=== PATIENT | female | born 1965 | race Caucasian/White ===

== ENCOUNTER → 2017-03-12 | Outpatient (CLI) | payer BC, OTHER ==
[2017-03-12 09:34] LABS: ANION GAP 8 MEQ/L (8-16); BLOOD UREA NITROGEN 13 MG/DL (7-18); CALCIUM LEVEL 8.7 MG/DL (8.5-10.1); CARBON DIOXIDE LEVEL 27 MEQ/L (21-32); CHLORIDE LEVEL 107 MEQ/L (98-107); CHOLESTEROL LEVEL 205 MG/DL (<200); CREATININE FOR GFR 0.61 MG/DL (0.55-1.02); GLOMERULAR FILTRATION RATE > 60.0 (>51); GLUCOSE, FASTING 98 MG/DL (70-105); POTASSIUM SERUM 4.6 MEQ/L (3.5-5.1); SODIUM LEVEL 142 MEQ/L (136-145); TRIGLYCERIDES LEVEL 112 MG/DL (<150)
== END ==
LOC: M WUC 08:23
PROVIDERS: ATTEND Physician Assistant Medical
DX: R73.03 Prediabetes (principal); E55.9 Vitamin D deficiency, unspecified

== ENCOUNTER → 2018-06-14 | Outpatient (CLI) | payer OTHER, BC ==
[2018-06-14 13:39] LABS: ANION GAP 10 MEQ/L (8-16); BLOOD UREA NITROGEN 11 MG/DL (7-18); CALCIUM LEVEL 8.8 MG/DL (8.5-10.1); CARBON DIOXIDE LEVEL 24 MEQ/L (21-32); CHLORIDE LEVEL 107 MEQ/L (98-107); CHOLESTEROL LEVEL 180 MG/DL (<200); CHOLESTEROL RISK RATIO 3.461 (<5); CREATININE FOR GFR 0.61 MG/DL (0.55-1.30); GLOMERULAR FILTRATION RATE > 60.0 (>51); GLUCOSE, FASTING 109 MG/DL (70-100); HDL CHOLESTEROL 52 MG/DL (>40); LDL CHOLESTEROL 99 MG/DL (<100); NON-HDL-C 128 MG/DL; POTASSIUM SERUM 4.4 MEQ/L (3.5-5.1); SODIUM LEVEL 141 MEQ/L (136-145); TOTAL 25(OH) VITAMIN D 20.8 NG/ML (30.0-100.0); TRIGLYCERIDES LEVEL 145 MG/DL (<150)
[2018-06-14 14:13] LABS: ESTIMATED AVERAGE GLUCOSE 126 MG/DL (60-110)
== END ==
LOC: M WUC 08:42
DX: R73.03 Prediabetes (principal); E66.9 Obesity, unspecified; E55.9 Vitamin D deficiency, unspecified
CPT/HCPCS: 83036

== ENCOUNTER → 2019-07-04 | Outpatient (REF) | payer OTHER ==
[2019-07-06 08:06] LABS: BORDETELLA PARAPERTUSSIS PCR Negative (Negative); BORDETELLA PERTUSSIS BY PCR Negative (Negative)
== END ==
LOC: M LAB REF 09:50
PROVIDERS: ATTEND Nurse Practitioner Family
DX: J01.90 Acute sinusitis, unspecified (principal)

== ENCOUNTER → 2019-10-25 | Outpatient (CLI) | payer OTHER ==
[2019-10-25 09:59] LABS: ALBUMIN 3.7 GM/DL (3.2-5.2); ALT/SGPT 29 U/L (12-78); BILIRUBIN,TOTAL 0.6 MG/DL (0.2-1.0); BLOOD UREA NITROGEN 13 MG/DL (7-18); CALCIUM LEVEL 8.7 MG/DL (8.5-10.1); CARBON DIOXIDE LEVEL 27 MEQ/L (21-32); CHLORIDE LEVEL 107 MEQ/L (98-107); CHOLESTEROL LEVEL 207 MG/DL (<200); CHOLESTEROL RISK RATIO 3.631 (<5); CREATININE FOR GFR 0.67 MG/DL (0.55-1.30); GLOMERULAR FILTRATION RATE > 60.0 (>51); GLUCOSE, FASTING 113 MG/DL (70-100); HDL CHOLESTEROL 57 MG/DL (>40); LDL CHOLESTEROL 126 MG/DL (<100); NON-HDL-C 150 MG/DL; POTASSIUM SERUM 4.6 MEQ/L (3.5-5.1); SODIUM LEVEL 139 MEQ/L (136-145); TOTAL PROTEIN 7.8 GM/DL (6.4-8.2); TRIGLYCERIDES LEVEL 121 MG/DL (<150)
[2019-10-25 10:37] LABS: HEMOGLOBIN A1c 6.2 %
== END ==
LOC: M WUC 08:25
DX: R19.7 Diarrhea, unspecified (principal); Z13.220 Encounter for screening for lipoid disorders; Z13.1 Encounter for screening for diabetes mellitus

== ENCOUNTER → 2020-02-09 | Outpatient (REF) | payer OTHER | LOC: M LAB REF 12:10 | PROVIDERS: ATTEND Physician Assistant | DX: R30.0 Dysuria (principal) ==

== ENCOUNTER → 2020-02-23 | Outpatient (CLI) | payer OTHER ==
[2020-02-23 12:40] LABS: HEMOGLOBIN A1c 5.9 %
== END ==
LOC: M WUC 10:14
PROVIDERS: ATTEND Nurse Practitioner Family
DX: R73.03 Prediabetes (principal)

== ENCOUNTER 2021-07-13 10:52 | Emergency (ER) | payer BC, OTHER ==
[~2021-07-13] VITALS: Ht 182.9 cm; Wt 121.8 kg
--- OUTSIDE RECORDS SUMMARY | 2021-07-13 10:57 | CCD | Continuity of Care Document ---
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 [employer] [phone] No PCP AUTM Unavailable Problems Description No Information Available Social History Type Date Description Comments Sex Unknown ETOH Use 10/13/2019 Denies alcohol use Tobacco Use Start: Unknown End: Unknown Patient is a former smoker smoked when she was 16-18 years of age 2 years only Recreational Drug Use Formerly used Marijuana re gularly Smoking Status Reviewed: 05/26/21 Patient is a former smoker sm oked when she was 16-18 years of age 2 years only Exercise Type/Frequency Exercises regularly Allergies and adverse reactions Description No Known Drug Allergies Medications Description No Active Medications Immunizations Description No Information Available Vital Signs Date Vital Result Comment 05/26/2021 1:16pm Height 66 inches 5'6" Weight 270.00 lb BMI (Body Mass Index) 43.6 kg/m2 BP Systolic 110 mmHg BP Diastolic 68 mmHg Heart Rate 86 /min Body Temperature 97.4 F Body Temperature 36.3 C O2 % BldC Oximetry 95 % 10/13/2019 1:47pm Height 66 inches 5'6" Weight 256.25 lb BMI (Body Mass Index) 41.4 kg/m2 BP Systolic 110 mmHg BP Diastolic 90 mmHg Heart Rate 79 /min Body Temperature 98.6 F Body Temperature 37.0 C O2 % BldC Oximetry 95 % Results Test Acquired Date Facility Test Result H/L Range Note CMP-Female 05/26/2021 [facility] [address] [place] [address] [phone] Glucose 137 mg/dL High 74-106 1 BUN 15 mg/dL 6-20 Creatinine 0.7 mg/dL 0.5-1.3 Sodium 141 mmol/L 136-145 Potassium 4.3 mmol/L 3.5-5.3 Chloride 106 mmol/L 98-107 Co2 30 mEq/L 20-31 Anion Gap 5 mmol/L Low 7-16 eGFR-female 87 mL/m/1.73m - eGFR-Aa female 105 mL/m/1.73m - 2 Alk. Phos. 112 U/L 46-116 Alt 24 U/L 4-36 3 Ast 19 U/L 8-33 Total Bilirubin 0.4 mg/dL 0.3-1.2 Total Protein 7.4 g/dL 6.4-8.3 4 Albumin 4.4 g/dL 3.6-5.1 A/G Ratio 1.5 Ratio 1.0-2.0 Globulin 3 g/dL 1.9-3.7 Calcium 9.1 mg/dL 8.9-10.5 LPPM 05/26/2021 [facility] [address] [place] [address] [phone] Cholesterol 193 mg/dL 0-200 Triglycerides 202 mg/dL 0-249 5 HDL 55 mg/dL 40-60 LDL-Calculated 98 mg/dL 0-130 VLDL 40 mg/dL High 0-28 Cardiac Risk 3.51 Ratio Low 3.7-5.3 Laboratory test finding 05/26/2021 [facility] [address] [place] [address] [phone] Hgb A1c 6.5 % 3.6-6.9 6 Est. Average Glucose 140 mg/dL - 7 Venipuncture DONE - 1 [place] Diabetes Associatio n (ADA) Recommended Range is 65-99 mg/dL 2 Normal Kidney Function or Mi ld Disease GFR >59 mL/min/1.73m2 Chronic Kidney Disease GFR 15-59 mL/min/1.73m2 Renal Failure GFR <15 mL/min/1.73m2 3 Effective 02/06/2017: [email or web address] has indicated interference with the drugs sulfasalazine and sulfapyridine. They suggest collection should occur prior to drug administration due to falsely depressed results. 4 Results may reflect a potent ial interference in Total Protein results in patients receiving dextran as blood volume expanders. 5 National Cholesterol Educati on Program (NCEP) Guidelines: Recommended Range <150 mg/dL 6 Hgb A1c Interpretation: <5.8% - Non-diabetic >6.5% - Diabetic <7.0% - ADA diabetic treatment goal 7 The Estimated Average Glucos e is a calculation of the average glucose over the last 120 days including non-fasting as well as fasting levels. Procedures Date Code Description Status 05/26/2021 31740 Preventive Visit Est 40-64 Yrs C ompleted Medical Devices Description No Information Available Encounters Type Date Location Provider Dx Diagnosis Office Visit 05/26/2021 1:20p [facility] [place] Ashley Hawthorne NP R73.03 Prediabetes E78.5 Hyperlipidemia, unspecified Z00.00 Encntr for general adult med ical exam w/o abnormal findings Z12.31 Encntr screen mammogram for malignant neoplasm of breast Z71.3 Dietary counseling and surve illance Assessments Date Code Description Provider 05/26/2021 R73.03 Prediabetes Iacny Clinical L abs 05/26/2021 E78.5 Hyperlipidemia, unspecified Iacn y Clinical Labs 05/26/2021 R73.03 Prediabetes Ashley Hawthorne NP 05/26/2021 E78.5 Hyperlipidemia, unspecified Beve iker Hawthorne NP 05/26/2021 Z00.00 Encounter for genera l adult medical examination without abnormal findings Ashley Hawthorne NP 05/26/2021 Z12.31 Encounter for screen ing mammogram for malignant neoplasm of breast Ashley Hawthorne NP 05/26/2021 Z71.3 Dietary counseling and surveilla nce Ashley Hawthorne NP Plan of Treatment Future Appointment(s):* 11/24/2021 10:40 am - Ashley Hawthorne NP at [facility] [place] 05/26/2021 - Ashley Hawthorne NP* R73.03 Prediabetes* Comments:* Stable without medication.Did not take metformin.Work on diet and weight loss.Check HgA1c. * E78.5 Hyperlipidemia, unspecified* Comments:* Continue monitoring. * Follow up:* 6 months * Z00.00 Encounter for general adult medical examination without abnormal findings* Comments:* She is a pleasant and healthy woman.Normal exam.Patient was counseled on the importance of a well-balanced diet and exercise. Patient was encouraged to follow-up regularly with dentist and attend routine eye exams with creel cleaner.Ordered blood work in the clinic today. * Follow up:* In 1 year or sooner as needed. * Z12.31 Encounter for screening mammogram for malignant neoplasm of breast* Comments:* done through [employer] [facility] * Z71.3 Dietary counseling and surveillance Functional Status Functional Condition Comment Date Status Glasses Active Mental Status Description No Information Available Referrals Description No Information Available
--- OUTSIDE RECORDS SUMMARY | 2021-07-13 10:57 | CCD | Continuity of Care Document ---
Author Author Alice HAWTHORNE COSTUME DESIGNER Organization Unknown Address [address] [place] [address] Phone [phone] Care Team Providers Care Supervisor Special Services Name Role Phone Ashley Hawthorne [employer]NER AUTM [phone] Problems Description No Information Available Social History [...] Test Result H/L Range Note CMP-Female 05/26/2021 [facility] [address] [place], [place] [id number] [phone] Glucose 137 mg/dL High 74-106 1 BUN [...] 1.9-3.7 Calcium 9.1 mg/dL 8.9-10.5 LPPM 05/26/2021 [facility] [address] [place] [address] [phone] Cholesterol 193 mg/dL 0-200 Triglycerides 202 mg/dL 0-249 5 HDL 55 mg/dL 40-60 LDL-Calculated 98 mg/dL 0-130 VLDL 40 mg/dL High 0-28 Cardiac Risk 3.51 Ratio Low 3.7-5.3 Laboratory test finding 05/26/2021 [facility] [address] [place] [address] [phone] Hgb A1c 6.5 % 3.6-6.9 6 Est. Average Glucose 140 mg/dL - 7 Venipuncture DONE - 1 [place] Diabetes Associatio n (ADA) Recommended Range is 65-99 mg/dL 2 Normal Kidney Function or Mi ld Disease GFR >59 mL/min/1.73m2 Chronic Kidney Disease GFR 15-59 mL/min/1.73m2 Renal Failure GFR <15 mL/min/1.73m2 3 Effective 02/06/2017: [employer] has indicated interference with the drugs sulfasalazine [...] levels. Procedures Date Code Description Status 05/26/2021 35499 Preventive Visit Est 40-64 Yrs C ompleted Medical Devices Description No Information Available Encounters Description No Information Available Assessments Date Code Description Provider 05/26/2021 R73.03 Prediabetes Ashley Hawthorne NP 05/26/2021 E78.5 Hyperlipidemia, unspecified Beve iker Hawthorne NP 05/26/2021 Z00.00 Encounter for genera l adult medical examination without abnormal findings Ashley Hawthorne NP 05/26/2021 Z12.31 Encounter for screen ing mammogram for malignant neoplasm of breast Ashley Hawthorne NP Plan of Treatment Future Appointment(s):* 11/24/2021 10:40 am - Ashley Hawthorne NP at [facility] Primary Care AT [place] 05/26/2021 - Ashley Hawthorne NP* R73.03 Prediabetes* [...] dentist and attend routine eye exams with hr associate.Ordered blood work in the clinic today. * Follow up:* In 1 year or sooner as needed. * Z12.31 Encounter for screening mammogram for malignant neoplasm of breast* Comments:* done through [employer] Functional Status Functional Condition Comment Date Status Glasses Active Mental Status Description No Information Available Referrals Description No Information Available
--- OUTSIDE RECORDS SUMMARY | 2021-07-13 10:57 | CCD ---
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 Name Role Phone Maring, Zach PA Unavailable Unavailable Maring, Zach PA Unavailable Unavailable Maring, Zach PA Unavailable Unavailable Maring, Zach PA Unavailable Unavailable Maring, Zach PA Unavailable Unavailable Maring, Zach PA Unavailable Unavailable Maring, Zach PA Unavailable Unavailable Maring, Zach PA Unavailable Unavailable Maring, Zach PA Unavailable Unavailable Maring, Zach PA Unavailable Unavailable Maring, Zach PA Unavailable Unavailable Maring, Zach PA Unavailable Unavailable Maring, Zach PA Unavailable Unavailable Maring, Zach PA Unavailable Unavailable Maring, Zach PA Unavailable Unavailable Maring, Zach PA Unavailable Unavailable White, Verónica WAREHOUSE PRODUCTION WORKER Unavailable Unavailable White, Verónica WAREHOUSE PRODUCTION WORKER Unavailable Unavailable White, Verónica WAREHOUSE PRODUCTION WORKER Unavailable Unavailable White, Verónica WAREHOUSE PRODUCTION WORKER Unavailable Unavailable White, Veróinca WAREHOUSE PRODUCTION WORKER Unavailable Unavailable White, Verónica WAREHOUSE PRODUCTION WORKER Unavailable Unavailable White, Verónica WAREHOUSE PRODUCTION WORKER Unavailable Unavailable White, Verónica WAREHOUSE PRODUCTION WORKER Unavailable Unavailable White, Verónica WAREHOUSE PRODUCTION WORKER Unavailable Unavailable White, Verónica WAREHOUSE PRODUCTION WORKER Unavailable Unavailable White, Verónica WAREHOUSE PRODUCTION WORKER Unavailable Unavailable White, Verónica WAREHOUSE PRODUCTION WORKER Unavailable Unavailable White, Verónica WAREHOUSE PRODUCTION WORKER Unavailable Unavailable Chico Hawthorne WAREHOUSE PRODUCTION WORKER Unavailable Unavailable Chico Hawthorne WAREHOUSE PRODUCTION WORKER Unavailable Unavailable Christoph, A Ashley WAREHOUSE PRODUCTION WORKER Unavailable Unavailable Christoph, A Ashley WAREHOUSE PRODUCTION WORKER Unavailable Unavailable Christoph, A Ashley WAREHOUSE PRODUCTION WORKER Unavailable Unavailable Christoph, A Ashley WAREHOUSE PRODUCTION WORKER Unavailable Unavailable Christoph, A Ashley WAREHOUSE PRODUCTION WORKER Unavailable Unavailable Christoph, A Ashley WAREHOUSE PRODUCTION WORKER Unavailable Unavailable Christoph, A Ashley WAREHOUSE PRODUCTION WORKER Unavailable Unavailable Christoph, A Ashley WAREHOUSE PRODUCTION WORKER Unavailable Unavailable Christoph, A Ashley WAREHOUSE PRODUCTION WORKER Unavailable Unavailable Christoph, A Ashley WAREHOUSE PRODUCTION WORKER Unavailable Unavailable Christoph, A Ashley WAREHOUSE PRODUCTION WORKER Unavailable Unavailable Christoph, A Ashley WAREHOUSE PRODUCTION WORKER Unavailable Unavailable Christoph, A Ashley WAREHOUSE PRODUCTION WORKER Unavailable Unavailable Christoph, A Ashley WAREHOUSE PRODUCTION WORKER Unavailable Unavailable Christoph, A Ashley WAREHOUSE PRODUCTION WORKER Unavailable Unavailable Christoph, A Ashley WAREHOUSE PRODUCTION WORKER Unavailable Unavailable Christoph, A Ashley WAREHOUSE PRODUCTION WORKER Unavailable Unavailable Christoph, A Ashley WAREHOUSE PRODUCTION WORKER Unavailable Unavailable Christoph, A Ashley WAREHOUSE PRODUCTION WORKER Unavailable Unavailable Christoph, A Ashley WAREHOUSE PRODUCTION WORKER Unavailable Unavailable Christoph, A Ashley WAREHOUSE PRODUCTION WORKER Unavailable Unavailable Christoph, A Ashely WAREHOUSE PRODUCTION WORKER Unavailable Unavailable Christoph, A Ashley WAREHOUSE PRODUCTION WORKER Unavailable Unavailable Christoph, A Ashley WAREHOUSE PRODUCTION WORKER Unavailable Unavailable Christoph, A Ashley WAREHOUSE PRODUCTION WORKER Unavailable Unavailable Christoph, A Ashley WAREHOUSE PRODUCTION WORKER Unavailable Unavailable Christoph, A Ashley WAREHOUSE PRODUCTION WORKER Unavailable Unavailable Christoph, A Ashley WAREHOUSE PRODUCTION WORKER Unavailable Unavailable Christoph, A Ashley WAREHOUSE PRODUCTION WORKER Unavailable Unavailable Christoph, A Ashley WAREHOUSE PRODUCTION WORKER Unavailable Unavailable Christoph, A Ashley WAREHOUSE PRODUCTION WORKER Unavailable Unavailable Christoph, A Ashley WAREHOUSE PRODUCTION WORKER Unavailable Unavailable Christoph, A Ashley WAREHOUSE PRODUCTION WORKER Unavailable Unavailable Christoph, A Ashley WAREHOUSE PRODUCTION WORKER Unavailable Unavailable Christoph, A Ashley WAREHOUSE PRODUCTION WORKER Unavailable Unavailable Christoph, A Ashley WAREHOUSE PRODUCTION WORKER Unavailable Unavailable Christoph, A Ashley WAREHOUSE PRODUCTION WORKER Unavailable Unavailable Christoph, A Ashley WAREHOUSE PRODUCTION WORKER Unavailable Unavailable Christoph, A Ashley WAREHOUSE PRODUCTION WORKER Unavailable Unavailable Christoph, A Ashley WAREHOUSE PRODUCTION WORKER Unavailable Unavailable Christoph, A Ashley WAREHOUSE PRODUCTION WORKER Unavailable Unavailable Christoph, A Ashley WAREHOUSE PRODUCTION WORKER Unavailable Unavailable Christoph, A Ashley WAREHOUSE PRODUCTION WORKER Unavailable Unavailable Christoph, A Ashley WAREHOUSE PRODUCTION WORKER Unavailable Unavailable Christoph, A Ashley WAREHOUSE PRODUCTION WORKER Unavailable Unavailable Christoph, A Ashley WAREHOUSE PRODUCTION WORKER Unavailable Unavailable Christoph, A Ashley WAREHOUSE PRODUCTION WORKER Unavailable Unavailable Christoph, A Ashley WAREHOUSE PRODUCTION WORKER Unavailable Unavailable Christoph, A Ashley WAREHOUSE PRODUCTION WORKER Unavailable Unavailable Christoph, A Ashley WAREHOUSE PRODUCTION WORKER Unavailable Unavailable Christoph, A Ashley WAREHOUSE PRODUCTION WORKER Unavailable Unavailable Christoph, A Ashley WAREHOUSE PRODUCTION WORKER Unavailable Unavailable Christoph, A Ashley WAREHOUSE PRODUCTION WORKER Unavailable Unavailable Christoph, A Ashley WAREHOUSE PRODUCTION WORKER Unavailable Unavailable Nilesh Dillard MD Unavailable Unavailable Nilesh Dillard MD Unavailable Unavailable Nilesh Dillard MD Unavailable Unavailable Nilesh Dillard MD Unavailable Unavailable Nilesh Dillard MD Unavailable Unavailable Nilesh Dillard MD Unavailable Unavailable Nilesh Dillard MD Unavailable Unavailable Nilesh Dillard MD Unavailable Unavailable Nilesh Dillard MD Unavailable Unavailable Nilesh Dillard MD Unavailable Unavailable Nilesh Dillard MD Unavailable Unavailable Nilesh Dillard MD Unavailable Unavailable Nilesh Dillard MD Unavailable Unavailable Nilesh Dillard MD Unavailable Unavailable Nilesh Dillard MD Unavailable Unavailable Nilesh Dillard MD Unavailable Unavailable Nilesh Dillard MD Unavailable Unavailable Nilesh Dilladr MD Unavailable Unavailable Nilesh Dillard MD Unavailable Unavailable Nilesh Dillard MD Unavailable Unavailable Nilesh Dillard MD Unavailable Unavailable Nilesh Dillard MD Unavailable Unavailable Nilesh Dillard MD Unavailable Unavailable Nilesh Dillard MD Unavailable Unavailable Nilesh Dillard MD Unavailable Unavailable Armendariz, M Christopher PA-C Unavailable Unavailable Armendariz, M Christopher PA-C Unavailable Unavailable Armendariz, M Christopher PA-C Unavailable Unavailable Armendariz, M Christopher PA-C Unavailable Unavailable Armendariz, M Christopher PA-C Unavailable Unavailable Armendariz, M Christopher PA-C Unavailable Unavailable Armendariz, M Christopher PA-C Unavailable Unavailable Armendariz, M Christopher PA-C Unavailable Unavailable Armendariz, M Christopher PA-C Unavailable Unavailable Armendariz, M Christopher PA-C Unavailable Unavailable Armendariz, M Christopher PA-C Unavailable Unavailable Armendariz, M Christopher PA-C Unavailable Unavailable Armendariz, M Christopher PA-C Unavailable Unavailable Armendariz, M Christopher PA-C Unavailable Unavailable Armendariz, M Christopher PA-C Unavailable Unavailable Armendariz, M Christopher PA-C Unavailable Unavailable Armendariz, M Christopher PA-C Unavailable Unavailable Armendariz, M Christopher PA-C Unavailable Unavailable Armendariz, M Christopher PA-C Unavailable Unavailable Armendariz, M Christopher PA-C Unavailable Unavailable Armendariz, M Christopher PA-C Unavailable Unavailable Armendariz, M Christopher PA-C Unavailable Unavailable Armendariz, M Christopher PA-C Unavailable Unavailable Armendariz, M Christopher PA-C Unavailable Unavailable Armendariz, M Christopher PA-C Unavailable Unavailable Armendariz, M Christopher PA-C Unavailable Unavailable Re-disclosure Warning The records that you are about to access may contain information from federally-assisted alcohol or drug abuse programs. If such information is present, then the following federally mandated warning applies: This information has been disclosed to you from records protected by federal confidentiality rules (42 CFR part 2). The federal rules prohibit you from making any further disclosure of this information unless further disclosure is expressly permitted by the written consent of the person to whom it pertains or as otherwise permitted by 42 CFR part 2. A general authorization for the release of medical or other information is NOT sufficient for this purpose. The Federal rules restrict any use of the information to criminally investigate or prosecute any alcohol or drug abuse patient.The records that you are about to access may contain highly sensitive health information, the redisclosure of which is protected by Article 27-F of the [place] Public [employer] law. If you continue you may have access to information: Regarding HIV / AIDS; Provided by facilities licensed or operated by the [place] Office of Mental Health; or Provided by the [place] Office for People With Developmental Disabilities. If such information is present, then the following [place] mandated warning applies: This information has been disclosed to you from confidential records which are protected by state law. State law prohibits you from making any further disclosure of this information without the specific written consent of the person to whom it pertains, or as otherwise permitted by law. Any unauthorized further disclosure in violation of state law may result in a fine or fpc sentence or both. A general authorization for the release of medical or other information is NOT sufficient authorization for further disc losure. Family History Family Member Name Family Member Gender Family Member Status Date o f Status Description Data Source(s) Unknown Unknown Problem [facility] ([facility] Unknown Female Problem [facility] ([facility] Unknown Unknown Problem [facility] Unknown Unknown Problem [facility] ([facility] Encounters Encounter Providers Location Date Indications Data Source(s ) Outpatient Attender: Jorge Armendariz PA-C 07/06/2021 07:23:49 AM EST - 07/06/2021 01:44:27 PM EST [facility] ([facility]) Outpatient Attender: Ashley Hawthorne NP [facility] [place] 05/26/2021 01:20:00 PM EDT [facility] ([facility]) Outpatient Attender: Padmaja Dillard MD 0 04/09/2021 08:07:21 PM EDT - 04/09/2021 09:13:19 PM EDT [facility] ([facility]) Outpatient Attender: Padmaja Dillard MD 0 11/23/2020 10:34:29 AM EDT - 11/23/2020 11:25:16 AM EDT [facility] ([facility]) Outpatient Attender: Zach PERAZA 08/28/19 08:52:47 AM EST - 08/28/2020 09:22:18 AM EST [facility] ([facility] ) Outpatient Attender: Verónica dubon 08/08/2020 03:45:00 PM EST [facility] ([facility]) Medications Medication Brand Name Start Date Product Form Dose Route Admi nistrative Instructions Pharmacy Instructions Status Indications Reaction Description Data Source(s) Clobetasol Propionate 0.5 MG/ML Topical Cream 0.05 % CLOBETA HODAN PROPIONATE 06/10/2021 12:00:00 AM EDT cream 30 APPLY TO AFFECTED AREA(S) THIN LAYER ONCE DAILY APPLY TO AFFECTED AREA(S) THIN LAYER ONCE DAILY SOLD: 06/20/2021 [facility] NITROFURANTOIN, MACROCRYSTALS 25 MG / Ni trofurantoin, Monohydrate 75 MG Oral Capsule 100 mg NITROFURANTOIN MONOHYD/M-CRYST 04/10/2021 12:00:00 AM EDT ca psule 14 TAKE ONE CAPSULE BY MOUTH TWICE A DAY FOR 7 DAYS TAKE ONE CAPSULE BY MOUTH TWICE A DAY FOR 7 DAYS SOLD: 04/10/2021 [facility] 0.3 % 11/23/2020 12:00:00 AM EDT drops 10 APPLY 10 DROPS IN AFFECTED EAR(S) ONCE DAILY FOR 7 DAYS APPLY 10 DROPS IN AFFECTED EAR(S) ONCE DAILY FOR 7 DAY S SOLD: 11/23/2020 [facility] No Active Medications 08/08/2020 12:00:00 AM EST active [facility] ([facility], [facility]) Fluconazole 150 MG Oral Tablet Fluconazole 02/09/2020 12:00:00 AM EDT ORAL completed [facility] ([facility] [place] [facility], [facility]) NITROFURANTOIN, MACROCRYSTALS 25 MG / Ni trofurantoin, Monohydrate 75 MG Oral Capsule Nitrofurantoin Monohyd Macro 02/09/2020 12:00:00 AM EDT ORAL completed [facility] ([facility] [place] [facility], [facility]) Phenazopyridine hydrochloride 200 MG Delayed Release O ral Tablet Phenazopyridine HCL 02/09/2020 12:00:00 AM EDT ORAL completed [facility] ([facility], [facility]) Insurance Providers Payer name Policy type / Coverage type Policy ID Covered constitution party ID Covered constitution party's relationship to masters Policy Masters Plan Information BCBS [facility] [id number] UNITED HEALTHCARE [id number] [place] Plan F [id number] SPOUSE [id number] [employer] Commercial [employer] [id number] Spouse [id number] [employer] Commercial Insurance Co. [id number] Spouse [id number] UNITED HE[employer]CARE [id number] Emp/United Healthcare Commercial [id number] [employer] [place] Commercial [id number] Family Dependent [employer] [place] Health Maintenance Organization (HMO) [id number] Family Dependent United [employer]/[place] Medigap Part B [id number] [facility] Family Health Plus Commercial [id number] Self Emp/United Healthcare Commercial [id number] UNITED [facility] [id number] EMPIRE ([facility]) O [id number] P [id number] [place] Plan F [id number] SELF [id number] 2 Emp/[employer] Commercial [id number] [facility] Commercial [id number] Problems, Conditions, and Diagnoses No Information Surgeries/Procedures Procedure Description Date Indications Data Source(s) PERIODIC PREVENTIVE MED EST PATIENT 40-64YRS 12:00:00 AM EDT [facility] ([facility]) Results ID Date Data Source [id number] 07/06/2021 07:30:00 AM EST JENNIFER Name Value Range Interpretation Code Description Data [place] rce(s) Supporting Document(s) SARS-CoV-2 RNA Resp Ql TIMOTHY+probe DET[facility]ED [facility] This lab was ordered by KENDALL bey and reported by KENDALL Steward. ID Date Data Source [id number] 05/26/2021 02:19:00 PM EDT [facility] Name Value Range Interpretation Code Description Data [place] rce(s) Supporting Document(s) Hemoglobin A1c/Hemoglobin.total in Blood 6.5 % 3.6-6.9 [facility] ([facility]) <content>Hgb A1c Interpretation:</conten t>
<content><5.8% - Non- diabetic</content>
<content>>6.5% - Diabetic</content>
<content><7.0% - ADA diabetic treatment goal</content>
<content></content> Venipuncture Laboratory test result MEDE NT ([facility]) Glucose mean value [Mass/volume] in Blood Estimated fr om glycated hemoglobin 140 mg/dL [facility] ([facility]) The Estimated Average Glucose is a calcu lation of the average glucose over the last 120 days including non-fasting as well as fasting levels. ID Date Data Source [id number] 05/26/2021 02:19:00 PM EDT [facility] ([facility]) Name Value Range Interpretation Code Description Data [place] rce(s) Supporting Document(s) Triglyceride [Mass/volume] in Serum or Plasma 202 mg/dL 0-249 [facility] <content>National Cholesterol Education Program (NCEP) Guidelines:</content>
<content>Recommended Range <150 mg/dL</content>
<content></content> Cholesterol [Mass/volume] in Serum or Plasma 193 mg/dL 0-200 [facility] ([facility]) Cholesterol in LDL [Mass/volume] in Serum or Plasma by calcu lation 98 mg/dL 0-130 [facility] ([facility]) Cholesterol in HDL [Mass/volume] in Serum or Plasma 55 mg/dL 40-60 [facility] ([facility]) VLDL 40 mg/dL 0-28 Above high normal [facility]) Cardiac Risk 3.51 Ratio 3.7-5.3 Below low normal [facility] ([facility]) ID Date Data Source [id number] 05/26/2021 02:19:00 PM EDT [facility] ([facility]) Name Value Range Interpretation Code Description Data [place]ira rce(s) Supporting Document(s) Glucose [Mass/volume] in Serum or Plasma 137 mg/dL 74-106 Above high normal [facility] ([facility]) [place] Diabetes Association (ADA) Recommended Range is 65-99 mg/dL Urea nitrogen [Moles/volume] in Serum or Plasma 15 mg/dL 6-20 [facility] ([facility]) Creatinine [Mass/volume] in Serum or Plasma 0.7 mg/dL 0.5-1.3 [facility] ([facility]) Sodium [Moles/volume] in Serum or Plasma 141 mmol/L 136-145 [facility] ([facility]) Carbon dioxide, total [Moles/volume] in Serum or Plasma 30 meq/L 20 -31 [facility] ([facility]) Potassium [Moles/volume] in Serum or Plasma 4.3 mmol/L 3.5-5.3 [facility] ([facility]) Chloride [Moles/volume] in Serum or Plasma 106 mmol/L 98-107 [facility] ([facility]) eGFR-female 87 mL/m/1.73m [facility] ([facility]) Anion Gap 5 mmol/L 7-16 Below low normal [facility] ([facility]) Alanine aminotransferase [Enzymatic activity/volume] in Seru m or Plasma 24 U/L 4-36 [facility] ([facility]) Effective 02/06/2017: [employer] has indicated interference with the drugs sulfasalazine and sulfapyridine. They suggest collection should occur prior to drug administration due to falsely depressed results. Alkaline phosphatase [Enzymatic activity/volume] in Serum or Plasma 112 U/L 46-116 [facility] ([facility]) eGFR-Aa female 105 mL/m/1.73m [facility] ([facility]) <content>Normal Kidney Function or Mild Disease GFR >59 mL/min/1.73m2</content>
<content>Chronic Kidney Disease GFR 15-59 mL/min/1.73m2</content>
<content>Renal Failure GFR <15 mL/min/1.73m2</content>
<content></content> Protein [Mass/volume] in Serum or Plasma 7.4 g/dL 6.4-8.3 [facility] ([facility]) Results may reflect a potential interfer ence in Total Protein results in patients receiving dextran as blood volume expanders. Bilirubin.total [Mass/volume] in Serum or Plasma 0.4 mg/dL 0.3-1.2 [facility] ([facility]) Aspartate aminotransferase [Enzymatic activity/volume] in Serum or Plasma 19 U/L 8-33 [facility] Albumin [Mass/volume] in Serum or Plasma 4.4 g/dL 3.6-5.1 [facility] ([facility]) Albumin/Globulin [Mass Ratio] in Serum or Plasma 1.5 Ratio 1.0-2.0 [facility] ([facility]) Globulin [Mass/volume] in Serum by calculation 3 g/dL 1.9-3.7 [facility] ([facility]) Calcium [Mass/volume] in Serum or Plasma 9.1 mg/dL 8.9-10.5 [facility] ([facility]) ID Date Data Source [id number] 05/27/2021 03:13:19 PM EDT [facility] - CORE SPECIMEN DESCRIPTION MIDSTREAM UR INE,CLEAN CATCHCULTURE RESULTS NO GROWTHREPORT STATUS FINAL 05/27/2021 Name Value Range Interpretation Code Description Data [place] rce(s) Supporting Document(s) ID Date Data Source [id number] 08/28/2020 12:00:00 AM EST [facility] Name Value Range Interpretation Code Description Data [place] rce(s) Supporting Document(s) Carestart Rapid COVID Antigen Test Negative [facility] This lab was reported by Sergey [facility] Rebecca ospina. ID Date Data Source [id number] 08/28/2020 12:00:00 AM EST [facility] Name Value Range Interpretation Code Description Data [place] rce(s) Supporting Document(s) SARS coronavirus 2 RNA [Presence] in Res piratory specimen by TIMOTHY with probe detection NEGATIVE [facility] This lab was ordered by [facility] and reported by [employer]. Procedure Social History Code Duration Value Status Description Data Source(s ) Smoking 05/26/2021 12:00:00 AM EDT Patient is a former smoker completed Patient is a former smoker [facility] ([facility]) Smoking 08/08/2020 12:00:00 AM EST Patient has never smoked co mpleted Patient has never smoked [facility] ([facility]) Vital Signs ID Date Data Source UNK Name Value Range Interpretation Code Description Data Source(s) Body height 66 [in_i] 66 [in_i] [facility] ([facility]) 5'6" Body weight 270.00 [lb_av] 270.00 [lb_av] [facility] ([facility]) Body mass index (BMI) [Ratio] 43.6 kg/m2 43.6 k g/m2 [facility] ([facility]) Systolic blood pressure 110 mm[Hg] 110 mm[Hg] M [facility] ([facility]) Diastolic blood pressure 68 mm[Hg] 68 mm[Hg] [facility] Heart rate 86 /min 86 /min [facility] ([facility]) Body temperature 97.4 [degF] 97.4 [degF] [facility] ([facility]) Body temperature 36.3 Dariana 36.3 Dariana [facility] ( [facility]) Oxygen saturation in Arterial blood by Pulse oximetry 95 % 95 % [facility] ([facility]) Body height 66 [in_i] 66 [in_i] [facility] ([facility] 5'6" Systolic blood pressure 119 mm[Hg] 119 mm[Hg] M [facility]) Diastolic blood pressure 78 mm[Hg] 78 mm[Hg] [facility] ([facility]) Heart rate 95 /min 95 /min [facility] ([facility]) Oxygen saturation in Arterial blood by Pulse oximetry 96 % 96 % [facility] ([facility]) Body temperature 98.7 [degF] 98.7 [degF] [facility] ([facility]) Body weight 250.00 [lb_av] 250.00 [lb_av] [facility] ([facility]) Respiratory rate 15 /min 15 /min [facility] ( [facility]) Body mass index (BMI) [Ratio] 40.3 kg/m2 40.3 k g/m2 [facility] ([facility])
--- OUTSIDE RECORDS SUMMARY | 2021-07-13 10:57 | CCD | Continuity of Care Document ---
Author Author [facility] Alice Ayon Organization Unknown Address [id number] [place] [address] Phone [phone] Problems Description No Information Available Social History Type Date Description Comments Sex Unknown Allergies and adverse reactions Description No Information Available Medications Description No Information Available Immunizations Description No Information Available Vital Signs Description No Information Available Results Description No Information Available Procedures Description No Information Available Medical Devices Description No Information Available Encounters Description No Information Available Assessments Date Code Description Provider 05/26/2021 E78.5 Hyperlipidemia, unspecified [facility] Plan of Treatment No Information Available Functional Status Description No Information Available Mental Status Description No Information Available Referrals Description No Information Available
--- OUTSIDE RECORDS SUMMARY | 2021-07-13 10:57 | CCD | Continuity of Care Document ---
Author Author Alice [facility] CLAIMS EXAMINER Organization Unknown Address [address] [facility] [place] [address] Phone [phone] Care Team Providers Care Emergency Spill Response Technician Name Role Phone Ashley Hawthorne ENDOSCOPY TECHNICIAN AUTM [phone] Problems Description No Information Available Social History [...] Test Result H/L Range Note CMP-Female 05/26/2021 [facility] [address] [place], [place] [id number] [phone] Glucose 137 mg/dL High 74-106 1 BUN [...] 1.9-3.7 Calcium 9.1 mg/dL 8.9-10.5 LPPM 05/26/2021 [facility] [address] [place] [address] [phone] Cholesterol 193 mg/dL 0-200 Triglycerides 202 mg/dL 0-249 5 HDL 55 mg/dL 40-60 LDL-Calculated 98 mg/dL 0-130 VLDL 40 mg/dL High 0-28 Cardiac Risk 3.51 Ratio Low 3.7-5.3 Laboratory test finding 05/26/2021 [facility] [address] [place] [address] [phone] Hgb A1c 6.5 % 3.6-6.9 6 Est. Average Glucose 140 mg/dL - 7 Venipuncture DONE - 1 [place] Diabetes Associatio n (ADA) Recommended Range is 65-99 mg/dL 2 Normal Kidney Function or Mi ld Disease GFR >59 mL/min/1.73m2 Chronic Kidney Disease GFR 15-59 mL/min/1.73m2 Renal Failure GFR <15 mL/min/1.73m2 3 Effective 02/06/2017: [employer] has indicated interference with the drugs sulfasalazine [...] levels. Procedures Date Code Description Status 05/26/2021 13076 Preventive Visit Est 40-64 Yrs C ompleted Medical Devices Description No Information Available Encounters Type Date Location Provider Dx Diagnosis Office Visit 05/26/2021 1:20p [facility] [place] Ashley Hawthorne NP R73.03 Prediabetes E78.5 Hyperlipidemia, [...] 10:40 am - Ashley Hawthorne NP at [facility] [place] 05/26/2021 - Ashley Hawthorne NP* R73.03 Prediabetes* [...] dentist and attend routine eye exams with player development executive.Ordered blood work in the clinic today. * Follow up:* In 1 year or sooner as needed. * Z12.31 Encounter for screening mammogram for malignant neoplasm of breast* Comments:* done through CURRENCY EXAMINER * Z71.3 Dietary counseling and surveillance Functional Status Functional Condition Comment Date Status Glasses Active Mental Status Description No Information Available Referrals Description No Information Available
[2021-07-13] MEDS ORDERED: NS 1,000 ML IV ONE (11:10)
--- OUTSIDE RECORDS SUMMARY | 2021-07-13 11:29 | CCD ---
Author Author [facility] Organization [facility] Address Unknown Phone Unavailable Care Team Providers Care Fire Hydrant Mechanic Name Role Phone Maring, Zach PA Unavailable [...] Maring, Zach PA Unavailable Unavailable White, Verónica EFFICIENCY MANAGER Unavailable Unavailable White, Verónica EFFICIENCY MANAGER Unavailable Unavailable White, Verónica EFFICIENCY MANAGER Unavailable Unavailable White, Verónica EFFICIENCY MANAGER Unavailable Unavailable White, Verónica EFFICIENCY MANAGER Unavailable Unavailable White, Verónica EFFICIENCY MANAGER Unavailable Unavailable White, Verónica EFFICIENCY MANAGER Unavailable Unavailable White, Verónica EFFICIENCY MANAGER Unavailable Unavailable White, Verónica EFFICIENCY MANAGER Unavailable Unavailable White, Verónica EFFICIENCY MANAGER Unavailable Unavailable White, Verónica EFFICIENCY MANAGER Unavailable Unavailable White, Verónica EFFICIENCY MANAGER Unavailable Unavailable White, Verónica EFFICIENCY MANAGER Unavailable Unavailable [place] Hawthorne EFFICIENCY MANAGER Unavailable Unavailable [place] Hawthorne EFFICIENCY MANAGER Unavailable Unavailable Christoph, A Ashley EFFICIENCY MANAGER Unavailable Unavailable Christoph, A Ashley EFFICIENCY MANAGER Unavailable Unavailable Christoph, A Ashley EFFICIENCY MANAGER Unavailable Unavailable Christoph, A Ashley EFFICIENCY MANAGER Unavailable Unavailable Christoph, A Ashley EFFICIENCY MANAGER Unavailable Unavailable Christoph, A Ashley EFFICIENCY MANAGER Unavailable Unavailable Christoph, A Ashley EFFICIENCY MANAGER Unavailable Unavailable Christoph, A Ashley EFFICIENCY MANAGER Unavailable Unavailable Christoph, A Ashley EFFICIENCY MANAGER Unavailable Unavailable Christoph, A Ashley EFFICIENCY MANAGER Unavailable Unavailable Christoph, A Ashley EFFICIENCY MANAGER Unavailable Unavailable Christoph, A Ashley EFFICIENCY MANAGER Unavailable Unavailable Christoph, A Ashley EFFICIENCY MANAGER Unavailable Unavailable Christoph, A Ashley EFFICIENCY MANAGER Unavailable Unavailable Christoph, A Ashley EFFICIENCY MANAGER Unavailable Unavailable Christoph, A Ashley EFFICIENCY MANAGER Unavailable Unavailable Christoph, A Ashley EFFICIENCY MANAGER Unavailable Unavailable Christoph, A Ashley EFFICIENCY MANAGER Unavailable Unavailable Christoph, A Ashley EFFICIENCY MANAGER Unavailable Unavailable Christoph, A Ashley EFFICIENCY MANAGER Unavailable Unavailable Christoph, A Ashley EFFICIENCY MANAGER Unavailable Unavailable Christoph, A Ashley EFFICIENCY MANAGER Unavailable Unavailable Christoph, A Ashley EFFICIENCY MANAGER Unavailable Unavailable Christoph, A Ashley EFFICIENCY MANAGER Unavailable Unavailable Christoph, A Ashley EFFICIENCY MANAGER Unavailable Unavailable Christoph, A Ashley EFFICIENCY MANAGER Unavailable Unavailable Christoph, A Ashley EFFICIENCY MANAGER Unavailable Unavailable Christoph, A Ashley EFFICIENCY MANAGER Unavailable Unavailable Christoph, A Ashley EFFICIENCY MANAGER Unavailable Unavailable Christoph, A Ashley EFFICIENCY MANAGER Unavailable Unavailable Christoph, A Ashley EFFICIENCY MANAGER Unavailable Unavailable Christoph, A Ashley EFFICIENCY MANAGER Unavailable Unavailable Christoph, A Ashley EFFICIENCY MANAGER Unavailable Unavailable Christoph, A Ashley EFFICIENCY MANAGER Unavailable Unavailable Christoph, A Ashley EFFICIENCY MANAGER Unavailable Unavailable Christoph, A Ashley EFFICIENCY MANAGER Unavailable Unavailable Christoph, A Ashley EFFICIENCY MANAGER Unavailable Unavailable Christoph, A Ashley EFFICIENCY MANAGER Unavailable Unavailable Christoph, A Ashley EFFICIENCY MANAGER Unavailable Unavailable Christoph, A Ashley EFFICIENCY MANAGER Unavailable Unavailable Christoph, A Ashley EFFICIENCY MANAGER Unavailable Unavailable Christoph, A Ashley EFFICIENCY MANAGER Unavailable Unavailable Christoph, A Ashley EFFICIENCY MANAGER Unavailable Unavailable Christoph, A Ashley EFFICIENCY MANAGER Unavailable Unavailable Christoph, A Ashley EFFICIENCY MANAGER Unavailable Unavailable Christoph, A Ashley EFFICIENCY MANAGER Unavailable Unavailable Christoph, A Ashley EFFICIENCY MANAGER Unavailable Unavailable Christoph, A Ashley EFFICIENCY MANAGER Unavailable Unavailable Christoph, A Ashley EFFICIENCY MANAGER Unavailable Unavailable Christoph, A Ashley EFFICIENCY MANAGER Unavailable Unavailable Christoph, A Ashley EFFICIENCY MANAGER Unavailable Unavailable Christoph, A Ashley EFFICIENCY MANAGER Unavailable Unavailable Christoph, A Ashley EFFICIENCY MANAGER Unavailable Unavailable Christoph, A Ashley EFFICIENCY MANAGER Unavailable Unavailable Nilesh Dillard MD Unavailable Unavailable [...] is protected by Article 27-F of the [facility] Public Health law. If you continue you may have access to information: Regarding HIV / AIDS; Provided by facilities licensed or operated by the [facility] Office of Mental Health; or Provided by the [facility] Office for People With Developmental Disabilities. If such information is present, then the following [facility] mandated warning applies: This information has been [...] law may result in a fine or intermediate sentence or both. A general authorization for the release of medical or other information is NOT sufficient authorization for further disc losure. Family History Family Member Name Family Member Gender Family Member Status Date o f Status Description Data Source(s) Unknown Unknown Problem [facility] ([facility] Unknown Female Problem [facility] ([facility] Unknown Unknown Problem [facility] Unknown Unknown Problem [facility] ([facility] Encounters Encounter Providers Location Date Indications Data Source(s ) Outpatient Attender: Jorge Armendariz PA-C 07/06/2021 07:23:49 AM EST - 07/06/2021 01:44:27 PM EST [facility] ([facility]) Outpatient Attender: Ashley Hawthorne NP [facility] [place] 05/26/2021 01:20:00 PM EDT [facility] ([facility]) Outpatient Attender: Padmaja Dillard MD 0 04/09/2021 08:07:21 PM EDT - 04/09/2021 09:13:19 PM EDT [facility] ([facility]) Outpatient Attender: Padmaja Dillard MD 0 11/23/2020 10:34:29 AM EDT - 11/23/2020 11:25:16 AM EDT [facility] ([facility]) Outpatient Attender: Zach PERAZA 08/28/19 08:52:47 AM EST - 08/28/2020 09:22:18 AM EST [facility] ([facility] ) Outpatient Attender: Verónica dubon 08/08/2020 03:45:00 PM EST [facility] ([facility]) Medications Medication Brand Name Start Date Product [...] Medications 08/08/2020 12:00:00 AM EST active [facility] ([facility], [facility]) Fluconazole 150 MG Oral Tablet Fluconazole 02/09/2020 12:00:00 AM EDT ORAL completed [facility] ([facility], [facility]) NITROFURANTOIN, MACROCRYSTALS 25 MG / Ni trofurantoin, Monohydrate 75 MG Oral Capsule Nitrofurantoin Monohyd Macro 02/09/2020 12:00:00 AM EDT ORAL completed [facility] ([facility]) Phenazopyridine hydrochloride 200 MG Delayed Release O ral Tablet Phenazopyridine HCL 02/09/2020 12:00:00 AM EDT ORAL completed [facility] ([facility], [facility]) Insurance Providers Payer name Policy type / Coverage type Policy ID Covered alliance party ID Covered alliance party's relationship to masters Policy Masters Plan Information BCBS [facility] [id number] UNITED HEALTHCARE [id number] Edwards Plan F [id number] SPOUSE [id number] United [employer] Commercial Insurance Co. [id number] Spouse [id number] United Health[employer] Commercial Insurance Co. [id number] Spouse [id number] UNITED HEALTHCARE [id number] Emp/United Healthcare Commercial [id number] [employer] Edwards Commercial [id number] Family Dependent United [employer] Edwards Health Maintenance Organization (HMO) [id number] Family Dependent United Healthcare/Edwards Medigap Part B [id number] [facility] Family Health Plus Commercial [id number] Self Emp/United Healthcare Commercial [id number] [facility] [id number] 01 [id number] EMPIRE ([facility] EMP) O [id number] P [id number] Edwards Plan F [id number] SELF [id number] Emp/United Healthcare Commercial [id number] [facility] Commercial [id number] Problems, Conditions, and Diagnoses No Information Surgeries/Procedures Procedure Description Date Indications Data Source(s) PERIODIC PREVENTIVE MED EST PATIENT 40-64YRS 12:00:00 AM EDT [facility] ([facility]) Results ID Date Data Source [id number] 07/06/2021 07:30:00 AM EST JENNIFER Name Value Range Interpretation Code Description Data [place] rce(s) Supporting Document(s) SARS-CoV-2 RNA Resp Ql [facility]OTHY+probe [facility]ED [facility] This lab was ordered by KENDALL bey and reported by KENDALL Steward. ID Date Data Source [id number] 05/26/2021 02:19:00 PM EDT [facility] Name Value Range Interpretation Code Description Data [place] rce(s) Supporting Document(s) Hemoglobin A1c/Hemoglobin.total in Blood 6.5 % 3.6-6.9 [facility] ([facility]) <content>Hgb A1c Interpretation:</conten t>
<content><5.8% - Non- diabetic</content>
<content>>6.5% - Diabetic</content>
<content><7.0% - ADA diabetic treatment goal</content>
<content></content> Venipuncture Laboratory test result MEDE NT ([facility]) Glucose mean value [Mass/volume] in Blood Estimated fr om glycated hemoglobin 140 mg/dL [facility] ([facility]) The Estimated Average Glucose is a calcu lation of the average glucose over the last 120 days including non-fasting as well as fasting levels. ID Date Data Source [id number] 05/26/2021 02:19:00 PM EDT [facility] ([facility]) Name Value Range Interpretation Code Description Data [place] rce(s) Supporting Document(s) Triglyceride [Mass/volume] in Serum or Plasma 202 mg/dL 0-249 [facility] <content>National Cholesterol Education Program (NCEP) Guidelines:</content>
<content>Recommended Range <150 mg/dL</content>
<content></content> Cholesterol [Mass/volume] in Serum or Plasma 193 mg/dL 0-200 [facility] ([facility]) Cholesterol in LDL [Mass/volume] in Serum or Plasma by calcu lation 98 mg/dL 0-130 [facility] ([facility]) Cholesterol in HDL [Mass/volume] in Serum or Plasma 55 mg/dL 40-60 [facility] ([facility]) VLDL 40 mg/dL 0-28 Above high normal [facility] Cardiac Risk 3.51 Ratio 3.7-5.3 Below low normal [facility] ([facility]) ID Date Data Source [id number] 05/26/2021 02:19:00 PM EDT [facility] ([facility]) Name Value Range Interpretation Code Description Data [place] rce(s) Supporting Document(s) Glucose [Mass/volume] in Serum or Plasma 137 mg/dL 74-106 Above high normal [facility] ([facility]) Citizen Of [place] Diabetes Association (ADA) Recommended Range is 65-99 mg/dL Urea nitrogen [Moles/volume] in Serum or Plasma 15 mg/dL 6-20 [facility] ([facility]) Creatinine [Mass/volume] in Serum or Plasma 0.7 mg/dL 0.5-1.3 [facility] ([facility]) Sodium [Moles/volume] in Serum or Plasma 141 mmol/L 136-145 [facility] ([facility]) Carbon dioxide, total [Moles/volume] in Serum or Plasma 30 meq/L 20 -31 [facility] ([facility]) Potassium [Moles/volume] in Serum or Plasma 4.3 mmol/L 3.5-5.3 [facility] ([facility]) Chloride [Moles/volume] in Serum or Plasma 106 mmol/L 98-107 [facility] ([facility]) eGFR-female 87 mL/m/1.73m [facility] ([facility]) Anion Gap 5 mmol/L 7-16 Below low normal [facility] ([facility]) Alanine aminotransferase [Enzymatic activity/volume] in Seru m or Plasma 24 U/L 4-36 [facility] ([facility]) Effective 02/06/2017: [employer] has indicated interference with the drugs sulfasalazine and sulfapyridine. They suggest collection should occur prior to drug administration due to falsely depressed results. Alkaline phosphatase [Enzymatic activity/volume] in Serum or Plasma 112 U/L 46-116 [facility] ([facility]) eGFR-Aa female 105 mL/m/1.73m [facility] ([facility]) <content>Normal Kidney Function or Mild Disease GFR >59 mL/min/1.73m2</content>
<content>Chronic Kidney Disease GFR 15-59 mL/min/1.73m2</content>
<content>Renal Failure GFR <15 mL/min/1.73m2</content>
<content></content> Protein [Mass/volume] in Serum or Plasma 7.4 g/dL 6.4-8.3 [facility] ([facility]) Results may reflect a potential interfer ence in Total Protein results in patients receiving dextran as blood volume expanders. Bilirubin.total [Mass/volume] in Serum or Plasma 0.4 mg/dL 0.3-1.2 [facility] ([facility]) Aspartate aminotransferase [Enzymatic activity/volume] in Serum or Plasma 19 U/L 8-33 [facility] Albumin [Mass/volume] in Serum or Plasma 4.4 g/dL 3.6-5.1 [facility] ([facility]) Albumin/Globulin [Mass Ratio] in Serum or Plasma 1.5 Ratio 1.0-2.0 [facility] ([facility]) Globulin [Mass/volume] in Serum by calculation 3 g/dL 1.9-3.7 [facility] ([facility]) Calcium [Mass/volume] in Serum or Plasma 9.1 mg/dL 8.9-10.5 [facility] ([facility]) ID Date Data Source [id number] 05/27/2021 03:13:19 PM EDT [facility] - CORE SPECIMEN DESCRIPTION MIDSTREAM UR INE,CLEAN CATCHCULTURE RESULTS NO GROWTHREPORT STATUS FINAL 05/27/2021 Name Value Range Interpretation Code Description Data [place] rce(s) Supporting Document(s) ID Date Data Source [id number] 08/28/2020 12:00:00 AM EST [facility] Name Value Range Interpretation Code Description Data [place] rce(s) Supporting Document(s) Carestart Rapid COVID Antigen Test Negative [facility] This lab was reported by Sergey [facility] Rebecca ospina. ID Date Data Source [id number] 08/28/2020 12:00:00 AM EST [facility] Name Value Range Interpretation Code Description Data [place] rce(s) Supporting Document(s) SARS coronavirus 2 RNA [Presence] in Res piratory specimen by TIMOTHY with probe detection NEGATIVE [facility] This lab was ordered by [facility] and reported by [employer]. Procedure Social History Code Duration Value Status Description Data Source(s ) Smoking 05/26/2021 12:00:00 AM EDT Patient is a former smoker completed Patient is a former smoker [facility] ([facility]) Smoking 08/08/2020 12:00:00 AM EST Patient has never smoked co mpleted Patient has never smoked [facility] ([facility]) Vital Signs ID Date Data Source UNK Name Value Range Interpretation Code Description Data Source(s) Body weight 270.00 [lb_av] 270.00 [lb_av] MED[facility] T ([facility]) Body mass index (BMI) [Ratio] 43.6 kg/m2 43.6 k g/m2 [facility] ([facility]) Systolic blood pressure 110 mm[Hg] 110 mm[Hg] M [facility] ([facility]) Body height 66 [in_i] 66 [in_i] [facility] 5'6" Diastolic blood pressure 68 mm[Hg] 68 mm[Hg] [facility] Heart rate 86 /min 86 /min [facility] ([facility]) Body temperature 97.4 [degF] 97.4 [degF] [facility] ([facility]) Body temperature 36.3 Dariana 36.3 Dariana [facility] ( [facility]) Oxygen saturation in Arterial blood by Pulse oximetry 95 % 95 % [facility] Body height 66 [in_i] 66 [in_i] [facility] 5'6" Oxygen saturation in Arterial blood by Pulse oximetry 96 % 96 % [facility] Systolic blood pressure 119 mm[Hg] 119 mm[Hg] M EDENT ([facility], [facility]) Body mass index (BMI) [Ratio] 40.3 kg/m2 40.3 k g/m2 [facility], [facility]) Diastolic blood pressure 78 mm[Hg] 78 mm[Hg] [facility], [facility]) Heart rate 95 /min 95 /min [facility] ([facility], [facility]) Respiratory rate 15 /min 15 /min [facility] ( [facility], [facility]) Body temperature 98.7 [degF] 98.7 [degF] [facility] ([facility], [facility]) Body weight 250.00 [lb_av] 250.00 [lb_av] MEDEN T ([facility], [facility])
[2021-07-13] MEDS ORDERED: ONDANSETRON 4MG/2ML VIAL IV ONE (13:25)
[2021-07-13 16:08] VITALS: BP 115/64
--- NOTE | 2021-07-13 17:24 | ECGEPIP ---
[facility] - ED Test Date: 2021-07-13 Pat Name: ESTRADA MOSLEY Department: Room: - Gender: Female Master Fire Control Technician: LOYD : 1965 Requested By: Megan Weston Order Number: [id number] Reading MD: Megan Weston Measurements Intervals [place] Rate: 107 P: 43 SC: 174 QRS: 27 QRSD: 82 T: 50 QT: 324 QTc: 432 Interpretive Statements Sinus tachycardia irbbb NSTTW abnormalities No prior Electronically Signed on 07-13-2021 17:24:05 EST by Megan Weston
== END 2021-07-13 16:24 | disposition home or self-care (01) ==
LOC: M ED 10:52
DX: E86.0 Dehydration (principal); U07.1 COVID-19
CPT/HCPCS: 80047; 93005; 96361; 96374; 99284; J2405

== ENCOUNTER 2021-07-14 10:58 | Outpatient (CLI) | payer BC, OTHER ==
--- NOTE | 2021-07-13 15:37 | HPEPDOC ---
[facility] Medical History & Physical Date of Admission Jul 13, 2021 Date of Service: Jul 13, 2021 History and Physical Chief complaint: Who presented to the ER on 07/13 with complaints of nausea and diarrhea History of present illness: Patient is a 56-year-old female with no significant PMHx who presented to the ER with complaints of nausea and diarrhea. Patient reports that theyve been experiencing nausea without vomiting and weakness since 07/07. Patient reported that on 07/04 she was experiencing muscle aches and fevers and subsequently went in to [facility] for testing on 07/06. Patient reported that over the course of the week. She was experiencing nausea and multiple episodes of diarrhea. Patient reports diarrhea up to 10 times a day; reported as watery. Patient denies any chest pain, palpitations or shortness of breath, but does report a cough without any significant expectoration. Patient has received Zofran in the emergency room and currently has resolution of her nausea. Patient reported that she did not get vaccinated. Hospital services contacted for evaluation of patient for monoclonal antibodies. Past Medical History: No significant past medical history Past Surgical History: Patient has reported prior colonoscopies Dilation and curettage Allergies: See below Medications: See below Family History: - Reviewed and noncontributory Social History: - Denies the use of alcohol, tobacco or illicit drugs - Denies recent travel or sick contacts - Lives with - Occupation; retired Review of Systems: 10 point review of systems complete, all negative otherwise stated in HPI Physical exam: - Vitals: BP [108/60], HR [97], RR [18], Sat [94%RA], Temp [100.0F] - General: Lying in bed, Speaking in full sentences, AAOx3 - HEENT: NC, AT, PERRLA - CVS: RRR, +S1S2, - Murmurs / rubs / gallops - Lungs: Fair air entry bilaterally, No appreciable wheezing / rales / rhonchi - Abdomen: Soft, Non-distended, Non-tender - Extremities: No lower extremity edema, No calf tenderness - Neuro: No focal motor or sensory deficit - Skin: No visible rashes Labs: See below Imaging: See below EKG: See below Assessment and Plan: COVID19 - Patient presented to the ER with nausea and diarrhea since 07/07 - Patient reported muscle aches and fevers on 07/04 and subsequently got tested on 07/06; Noted to be COVID19 positive - In the ER, patient was saturating well on room air at 94% - A she was able to ambulate and maintain saturations at 93% - Hospitalist service was called to evaluate for monoclonal antibodies as an outpatient - Patient currently has consented for monoclonal antibody infusion; discussed risks / benefits - Patient will follow-up with primary care provider and outpatient home health services on discharge - She has been provided a home pulse oximeter by the ER to continue monitoring her saturations at home Obesity - BMI of 36.4 - Complicating medical care DVT prophylaxis - Will c/w early ambulation Home Medications No Active Prescriptions or Reported Meds Allergies Coded Allergies: No Known Allergies (Unverified , 07/28/16) JOSÉ YAO MD Jul 13, 2021 15:37
[~2021-07-14] VITALS: Ht 167.6 cm; Wt 121.0 kg
[~2021-07-14 10:58] MED LIST: ACETAMINOPHEN TAB 650MG DOSE (2X325MG) PO PRN; ALBUTEROL 90 MCG/ACT 8GM HFA INHALER INH PRN; ALBUTEROL SULFATE 2.5 MG/0.5 ML INH NEB SOLN INH PRN; CASIRIVIMAB (REGN10933) 600 MG, IMDEVIMAB (REGN10987) 600 MG in NS 250 ML IV ONE; CASIRIVIMAB/IMDEVIMAB 1,200 MG in NS 250 ML IV ONE; EPINEPHrine INJ 1 MG/ML 1ML AMP IM PRN; NS 1,000 ML IV SCH; diphenhydrAMINE 50MG/ML VIAL (J1200) IV PRN; methylPREDNISolone 125MG 2ML VIAL IV PRN
[2021-07-14 11:32] VITALS: BP 108/62
[2021-07-14 12:02] VITALS: BP 108/58
[2021-07-14 12:32] VITALS: BP 111/59
[2021-07-14 13:32] VITALS: BP 103/61
== END 2021-07-14 13:32 | disposition home or self-care (01) ==
LOC: M OPCLI4PR 10:58
PROVIDERS: ATTEND Internal Medicine
DX: U07.1 COVID-19 (principal)

== ENCOUNTER → 2022-03-29 | Outpatient (CLI) | payer BC, OTHER ==
[~2022-03-29] MED LIST changes: -ACETAMINOPHEN TAB 650MG DOSE (2X325MG) PO PRN; -ALBUTEROL 90 MCG/ACT 8GM HFA INHALER INH PRN; -ALBUTEROL SULFATE 2.5 MG/0.5 ML INH NEB SOLN INH PRN; -CASIRIVIMAB (REGN10933) 600 MG, IMDEVIMAB (REGN10987) 600 MG in NS 250 ML IV ONE; -CASIRIVIMAB/IMDEVIMAB 1,200 MG in NS 250 ML IV ONE; -EPINEPHrine INJ 1 MG/ML 1ML AMP IM PRN; +MULTLIQ7 PO; -NS 1,000 ML IV SCH; -diphenhydrAMINE 50MG/ML VIAL (J1200) IV PRN; -methylPREDNISolone 125MG 2ML VIAL IV PRN
== END ==
LOC: M LABSMTC 09:18
PROVIDERS: ATTEND Anesthesiology
DX: Z01.818 Encounter for other preprocedural examination (principal); Z11.52 Encounter for screening for COVID-19

== ENCOUNTER 2022-04-01 12:48 | Day surgery (SDC) | payer BC, OTHER ==
[~2022-04-01] VITALS: Ht 167.6 cm; Wt 114.7 kg
[~2022-04-01 12:48] MED LIST changes: +NS 1,000 ML IV ONE
[2022-04-01] MEDS ORDERED: propofoL 200 MG/20 ML VIAL As Ordered ONE (14:19)
[2022-04-01] MEDS ORDERED: LIDOCAINE 2% 100MG/5ML SDV (FOR ANES.) As Ordered ONE (14:19)
[2022-04-01 14:40] VITALS: BP 128/76
== END 2022-04-01 14:52 | disposition home or self-care (01) ==
LOC: M OPP 12:48
PROVIDERS: ATTEND Surgery
DX: Z12.11 Encounter for screening for malignant neoplasm of colon (principal); Z86.010 Personal history of colon polyps; D12.0 Benign neoplasm of cecum; D12.8 Benign neoplasm of rectum; K57.30 Diverticulosis of large intestine without perforation or abscess without bleeding; K64.9 Unspecified hemorrhoids; N96 Recurrent pregnancy loss

== ENCOUNTER → 2024-01-14 | Outpatient (REF) | payer BC, OTHER ==
[~2024-01-14] MED LIST changes: -NS 1,000 ML IV ONE
== END ==
LOC: M LABWUC 13:08
PROVIDERS: ATTEND Nurse Practitioner Family
DX: D69.6 Thrombocytopenia, unspecified (principal)

== ENCOUNTER → 2024-01-28 | Outpatient (REF) | payer BC, OTHER ==
[2024-01-28 11:29] LABS: PLATELET COUNT, AUTOMATED 118 10^3/uL (150-450)
== END ==
LOC: M LABWUC 11:05
PROVIDERS: ATTEND Nurse Practitioner Family
DX: D69.6 Thrombocytopenia, unspecified (principal)

== ENCOUNTER → 2024-03-16 | Outpatient (CLI) | payer BC ==
[2024-03-16 13:40] LABS: PLATELET COUNT, AUTOMATED 141 10^3/uL (150-450)
== END ==
LOC: M WUC 10:44
PROVIDERS: ATTEND Nurse Practitioner Family
DX: D69.6 Thrombocytopenia, unspecified (principal)

== ENCOUNTER → 2024-04-14 | Outpatient (CLI) | payer BC ==
[2024-04-14 12:48] LABS: PLATELET COUNT, AUTOMATED 125 10^3/uL (150-450)
== END ==
LOC: M WUC 09:28
PROVIDERS: ATTEND Nurse Practitioner Family
DX: D69.6 Thrombocytopenia, unspecified (principal)

== ENCOUNTER → 2024-04-19 | Outpatient (CLI) | payer BC ==
[2024-04-19 17:50] LABS: BASO % 0.6 % (0.0-1.0); EOS # 0.2 10^3/uL (0.0-0.5); EOS % 2.8 % (0.0-3.0); HEMATOCRIT 41.3 % (36.0-47.0); HEMOGLOBIN 13.8 g/dl (12.0-15.5); LYMPH # 2.7 10^3/uL (1.5-5.0); MEAN CORPUSCULAR HEMOGLOBIN 28.1 pg (27.0-33.0); MEAN CORPUSCULAR HGB CONC 33.4 g/dl (32.0-36.5); MEAN CORPUSCULAR VOLUME 84.1 fl (80.0-96.0); MONO # 0.6 10^3/uL (0.0-0.8); MONO % 8.4 % (2.0-8.0); NEUTROPHILS # 3.7 10^3/uL (1.5-8.5); NEUTROPHILS % 50.9 % (36.0-66.0); PLATELET COUNT, AUTOMATED 138 10^3/uL (150-450); RED BLOOD COUNT 4.91 10^6/uL (4.00-5.40); WHITE BLOOD COUNT 7.2 10^3/uL (4.0-10.0)
[2024-04-19 18:35] LABS: HIV 1&2 SCREEN NEGATIVE (NEGATIVE)
[2024-04-19 18:43] LABS: HEPATITIS C VIRUS ABY INDEX 0.05 INDEX (<0.8)
== END ==
LOC: M WUC 14:23
PROVIDERS: ATTEND Nurse Practitioner Family
DX: D69.6 Thrombocytopenia, unspecified (principal)

== ENCOUNTER → 2024-06-15 | Outpatient (CLI) | payer BC ==
[2024-06-15 13:54] LABS: BASO % 0.6 % (0.0-1.0); EOS # 0.2 10^3/uL (0.0-0.5); EOS % 2.9 % (0.0-3.0); HEMATOCRIT 40.3 % (36.0-47.0); HEMOGLOBIN 13.5 g/dl (12.0-15.5); LYMPH # 2.2 10^3/uL (1.5-5.0); LYMPH % 30.6 % (24.0-44.0); MEAN CORPUSCULAR HEMOGLOBIN 28.3 pg (27.0-33.0); MEAN CORPUSCULAR HGB CONC 33.5 g/dl (32.0-36.5); MEAN CORPUSCULAR VOLUME 84.5 fl (80.0-96.0); MONO # 0.6 10^3/uL (0.0-0.8); MONO % 8.4 % (2.0-8.0); NEUTROPHILS # 4.1 10^3/uL (1.5-8.5); NEUTROPHILS % 57.2 % (36.0-66.0); PLATELET COUNT, AUTOMATED 181 10^3/uL (150-450); RED BLOOD COUNT 4.77 10^6/uL (4.00-5.40); WHITE BLOOD COUNT 7.2 10^3/uL (4.0-10.0)
[2024-06-17 03:03] LABS: CYCLIC CITRULLINATED PEPTIDE < 16 UNITS (<20)
[2024-06-19 10:18] LABS: ANA PATTERN Nuclear, Homogeneous (NEGATIVE); ANA SCREEN, IFA POSITIVE (NEGATIVE)
== END ==
LOC: M PLALAB 10:42
PROVIDERS: ATTEND Internal Medicine Hematology
DX: D69.6 Thrombocytopenia, unspecified (principal)

== ENCOUNTER → 2024-09-04 | Outpatient (CLI) | payer BC ==
[2024-09-04 18:04] LABS: ERYTHROCYTE SEDIMENTATION RATE 25 mm/hr (0-30)
[2024-09-04 18:10] LABS: BASO % 0.6 % (0.0-1.0); EOS # 0.1 10^3/uL (0.0-0.5); EOS % 2.1 % (0.0-3.0); HEMATOCRIT 40.1 % (36.0-47.0); HEMOGLOBIN 13.2 g/dl (12.0-15.5); LYMPH # 2.4 10^3/uL (1.5-5.0); LYMPH % 37.1 % (24.0-44.0); MEAN CORPUSCULAR HEMOGLOBIN 27.8 pg (27.0-33.0); MEAN CORPUSCULAR HGB CONC 32.9 g/dl (32.0-36.5); MEAN CORPUSCULAR VOLUME 84.6 fl (80.0-96.0); MONO # 0.4 10^3/uL (0.0-0.8); MONO % 6.1 % (2.0-8.0); NEUTROPHILS # 3.5 10^3/uL (1.5-8.5); NEUTROPHILS % 53.8 % (36.0-66.0); PLATELET COUNT, AUTOMATED 114 10^3/uL (150-450); RED BLOOD COUNT 4.74 10^6/uL (4.00-5.40); WHITE BLOOD COUNT 6.6 10^3/uL (4.0-10.0)
[2024-09-04 18:23] LABS: C REACTIVE PROTEIN QUANTITATIV 0.58 MG/DL (<1.0); RHEUMATOID FACTOR QUANT 9.1 IU/ML (<14)
[2024-09-07 07:18] LABS: ANA PATTERN Nuclear, Homogeneous (NEGATIVE); ANA PATTERN 2 Nuclear, Speckled; ANA SCREEN, IFA POSITIVE (NEGATIVE)
== END ==
LOC: M PLALAB 15:05
PROVIDERS: ATTEND Internal Medicine Hematology
DX: R76.8 Other specified abnormal immunological findings in serum (principal); M19.041 Primary osteoarthritis, right hand; M19.042 Primary osteoarthritis, left hand

== ENCOUNTER → 2024-09-26 | Outpatient (CLI) | payer BC ==
[2024-09-26 18:34] LABS: BASO % 0.6 % (0.0-1.0); EOS # 0.2 10^3/uL (0.0-0.5); EOS % 2.4 % (0.0-3.0); HEMATOCRIT 42.6 % (36.0-47.0); HEMOGLOBIN 13.8 g/dl (12.0-15.5); LYMPH # 2.5 10^3/uL (1.5-5.0); LYMPH % 33.9 % (24.0-44.0); MEAN CORPUSCULAR HEMOGLOBIN 27.4 pg (27.0-33.0); MEAN CORPUSCULAR HGB CONC 32.4 g/dl (32.0-36.5); MEAN CORPUSCULAR VOLUME 84.7 fl (80.0-96.0); MONO # 0.5 10^3/uL (0.0-0.8); MONO % 7.2 % (2.0-8.0); NEUTROPHILS % 55.5 % (36.0-66.0); RED BLOOD COUNT 5.03 10^6/uL (4.00-5.40); WHITE BLOOD COUNT 7.2 10^3/uL (4.0-10.0)
== END ==
LOC: M PLALAB 15:06
PROVIDERS: ATTEND Internal Medicine Hematology
DX: D69.6 Thrombocytopenia, unspecified (principal)

== ENCOUNTER → 2025-03-22 | Outpatient (REF) | payer BC ==
[2025-03-22 15:29] LABS: C REACTIVE PROTEIN QUANTITATIV 0.57 MG/DL (<1.0)
[2025-03-22 15:30] LABS: ALT/SGPT 22 U/L (7.0-40); AST/SGOT 16 U/L (<34); CALCIUM LEVEL 8.9 MG/DL (8.3-10.6); CARBON DIOXIDE LEVEL 27 MMOL/L (20-31); CHLORIDE LEVEL 106 MMOL/L (98-107); CREATININE FOR GFR 0.58 MG/DL (0.55-1.30); GLOMERULAR FILTRATION RATE > 90.0 (>45); POTASSIUM SERUM 4.4 MMOL/L (3.5-5.1); SODIUM LEVEL 142 MMOL/L (136-145)
[2025-03-22 15:31] LABS: COMPLEMENT C4 36.8 MG/DL (12-36)
[2025-03-22 15:42] LABS: AMORPHOUS SEDIMENT SMALL (NEGATIVE); APPEARANCE, URINE TURBID (CLEAR); BACTERIA, URINE AUTO NEGATIVE (NEGATIVE); BILIRUBIN, URINE AUTO NEGATIVE (NEGATIVE); BLOOD, URINE BLOOD NEGATIVE (NEGATIVE); GLUCOSE, URINE (UA) AUTO NEGATIVE (NEGATIVE); KETONE, URINE AUTO NEGATIVE (NEGATIVE); LEUKOCYTE ESTERASE, URINE AUTO NEGATIVE (NEGATIVE); NITRITE, URINE AUTO NEGATIVE (NEGATIVE); PROTEIN, URINE AUTO NEGATIVE (NEGATIVE); RBC, URINE AUTO 0 /HPF (0-3); SPECIFIC GRAVITY URINE AUTO 1.024 (1.002-1.035); SQUAMOUS EPITHELIAL CELL UR AU 2 /HPF (0-6); UROBILINOGEN, URINE AUTO 0.2 mg/dL (0.0-2.0); WBC, URINE AUTO 2 /HPF (0-3)
[2025-03-22 16:08] LABS: BASO # 0.1 10^3/uL (0.0-0.2); BASO % 0.7 % (0.0-1.0); EOS # 0.1 10^3/uL (0.0-0.5); EOS % 1.9 % (0.0-3.0); LYMPH # 2.0 10^3/uL (1.5-5.0); LYMPH % 29.0 % (24.0-44.0); MONO # 0.6 10^3/uL (0.0-0.8); MONO % 8.2 % (2.0-8.0); NEUTROPHILS # 4.1 10^3/uL (1.5-8.5); NEUTROPHILS % 59.8 % (36.0-66.0)
[2025-03-22 16:08] LABS: TOTAL PROTEIN,RANDOM URINE 9.1 MG/DL (0.0-14.0)
[2025-03-22 16:47] LABS: ERYTHROCYTE SEDIMENTATION RATE 55 mm/hr (0-30)
== END ==
LOC: M SFHCRHEU 09:53
PROVIDERS: ATTEND Internal Medicine Rheumatology
DX: R76.8 Other specified abnormal immunological findings in serum (principal); M25.50 Pain in unspecified joint; R59.9 Enlarged lymph nodes, unspecified